=== PATIENT | female | born 1955 | race Two or more races ===

== ENCOUNTER 2016-11-28 19:13 | Emergency (ER) | payer MEDICAID, OTHER ==
[~2016-11-28] VITALS: Ht 157.5 cm; Wt 86.2 kg
[2016-11-28 19:19] VITALS: BP 143/72
--- NOTE | 2016-11-28 19:30 | NUR ---
DR. HELM AT BEDSIDE FOR EVAL.
== END 2016-11-28 19:41 | disposition home or self-care (01) ==
LOC: ER 19:23
DX: S80.862A Insect bite (nonvenomous), left lower leg, initial encounter (principal); S80.861A Insect bite (nonvenomous), right lower leg, initial encounter; W57.XXXA Bitten or stung by nonvenomous insect and other nonvenomous arthropods, initial encounter; Y92.89 Other specified places as the place of occurrence of the external cause; Y93.89 Activity, other specified; Y99.8 Other external cause status
CPT/HCPCS: 99282; A4606; Z7610